=== PATIENT | male | born 1955 | race Caucasian/White ===

== ENCOUNTER 2016-10-28 13:19 | Emergency (ER) | payer MEDICAID ==
[2016-10-28] MEDS ORDERED: Sodium Chloride 0.9% 10 ML Syringe FLUSH PRN (14:01)
[2016-10-28] MEDS ORDERED: Sodium Chloride 0.9% 1,000 ML IV ONE (14:02)
[2016-10-28 14:57] LABS: CHLORIDE,CL 98 mmol/L (98-107); SODIUM,NA 136 mmol/L (136-145)
[2016-10-28] MEDS ORDERED: Piperacillin/Tazobactam 4.5 GM in Sodium Chloride 0.9% 100 ML IV ONE (15:01)
[2016-10-28] MEDS ORDERED: Acetaminophen 325 MG Tab PO ONE (15:18)
[2016-10-28] MEDS ORDERED: Aspirin 81 MG Tab.Chew PO ONE (15:34)
[2016-10-28 21:00] VITALS: BP 170/115
--- NOTE | 2016-10-31 08:09 | ER ---
Date of Service: 10/28/2016 SUBJECTIVE: Los presents to the emergency room via ambulance. The patient is currently undergoing treatment for prostate cancer. The patient's son currently resides with the patient at least part-time and states that the patient has been experiencing increased weakness and fatigue for sometime, but he stated that the patient was unable to get out of bed today to use the bathroom. Again the patient is currently undergoing treatment for prostate cancer. In reviewing his medical records, it appears as though he did have a prostatectomy in 2007, but was having elevations in his PSA. I do not have all of his medical records at this point, but it looks as though he underwent radiation and is currently undergoing once monthly chemotherapy according to his . I am not sure of what type of chemotherapeutic agent is being used for this. The patient is quite confused, so his history of present illness is obtained primarily from his family. The patient's son states that he has been having significant decrease in his appetite and his intake of food and fluids has been suboptimal. PAST MEDICAL HISTORY: 1. Stage IV prostate cancer status post prostatectomy. 2. Pulmonary nodules. 3. Tobacco abuse disorder. 4. History of alcoholism. 5. Hepatitis C. 6. Pancytopenia secondary to liver cirrhosis. 7. Stress incontinence. 8. Erectile dysfunction. 9. Chronic pain syndrome. 10.L5-S1 disk herniation with radiculopathy. 11.Anxiety. 12.Hyperlipidemia. 13. I previously stated I was not aware of what chemotherapy the patient was on, but in reviewing his medical records that just in fact it appears that he is on Lupron monthly. MEDICATIONS: 1. Lyrica 100 mg by mouth 2 times a day. 2. Trazodone 150 mg half tablet by mouth 3 times a day. 3. [place] 5/325 one tablet by mouth 4 times a day. 4. Lopressor 50 mg half a tablet by mouth 2 times a day. 5. Zoloft 50 mg 2 tablets by mouth once daily. 6. Alprazolam 0.5 mg 1 tablet by mouth 4 times a day. 7. Tums 500 mg 2 tablets by mouth 4 times a day. 8. Enteric-coated aspirin 325 mg once daily. 9. Multivitamin 1 tablet by mouth daily. 10.[place]-3 fatty acid 1 tablet by mouth 3 times a day. 11.Lupron 30 mg once daily. ALLERGIES: Gabapentin and pseudoephedrine. REVIEW OF SYSTEMS: Unobtainable. The patient is quite confused and unable to afford anyway any information on his signs or symptoms. PHYSICAL EXAMINATION: General: This is a 61-year-old male patient, who is in no acute distress. Vital signs: Blood pressure is 147/101, heart rate is 122, respiratory rate is 34, O2 saturation 93% on room air. Temp is 101.4, unable to relate what his pain level is. Skin: Warm, ashen, and dry. HEENT: Eyes, PERRLA. Extraocular movements are intact. Ears, TMs are clear. Mouth, oral mucosa is moist. No erythema or exudate noted in the hypopharynx. Neck: Supple. No masses. There is no lymphadenopathy. Lungs: Diminished in the bases. Heart: Regular rate and rhythm. Abdomen: Soft, nontender. There is no obvious masses noted. His abdomen is obese. Extremities: Without edema. No obvious cellulitis noted. Neurologic: The patient is awake and attempts to answer questions, but is unsuccessful most of the time. DIAGNOSTIC DATA: Portable chest x-ray was obtained. There was no evidence of any acute infiltrate. Hematology, WBC is 8.8, hemoglobin is 14.4, platelets are 86. Coags, PT is 12.5, INR is 1.1. Chemistry, sodium is 136, potassium is 3.4, chloride is 98, bicarb is 27, BUN is 34, creatinine is 1.7, GFR is 41, glucose is 115, lactic acid is 2.4, calcium is 8.8, corrected calcium is 9.2, total bilirubin is 1.7, AST is 170, ALT is 52, alkaline phosphatase is 70, CK is , CK-MB is 3.3, troponin is 0.324. C-reactive protein is 0.2. Total protein is 8.5. Urinalysis was obtained, specific gravity is 1.025. This is after a liter of saline. PH was 5.5. He did have a greater than 300 protein and negative glucose, did have trace of ketones, large occult blood, negative nitrites, small bilirubin and negative leukocyte esterase. He had 30 to 40 rbcs per high-power field. EMERGENCY ROOM COURSE: IV access was established. He was given a liter of normal saline IV. He was given Zosyn 4.5 g IV and started on vancomycin 1.5 g IV x1. He did remain hemodynamically stable during his stay in the emergency room. ASSESSMENT: 1. Sepsis of unknown etiology. 2. Profound dehydration. 3. Acute kidney injury. 4. Positive troponin secondary to [id number] myocardial infarction versus renal insufficiency. 5. Rhabdomyolysis. PLAN: The patient will be transferred to [facility] in [place]. I spoke with Dr. Ibanez, the hospitalist, who accepted the patient in transfer. The patient will be transported by [facility] ground ambulance to continue antibiotics and IV fluids. Family was present during his care and is aware of the plan. All questions were answered. MWK: 10/28/2016 17:43:50 MODL: 10/28/2016 18:32:37 /[id number]
== END 2016-10-28 16:15 | disposition short-term general hospital (02) ==
LOC: VM.ED 13:19
DX: A41.9 Sepsis, unspecified organism (principal); E86.0 Dehydration; N17.9 Acute kidney failure, unspecified; M62.82 Rhabdomyolysis; C61 Malignant neoplasm of prostate; F41.9 Anxiety disorder, unspecified; E78.5 Hyperlipidemia, unspecified; Z88.8 Allergy status to other drugs, medicaments and biological substances; Z79.82 Long term (current) use of aspirin; Z79.899 Other long term (current) drug therapy; Z90.79 Acquired absence of other genital organ(s)
CPT/HCPCS: 36415; 71010; 80053; 81001; 82550; 82553; 83605; 84484; 85025; 85610; 86140; 87040; 93005; 96361; 96365; 96367; 99285; A9270; J2543; J3370; J7030; J7050

== ENCOUNTER 2018-11-07 01:36 | Emergency (ER) | payer MEDICARE, MEDICAID ==
[2018-11-07 01:47] VITALS: BP 145/90; PULSE 85
[2018-11-07] MEDS ORDERED: Aspirin 81 MG Tab.Chew PO ONE (02:09)
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
[2018-11-07 02:55] LABS: CHLORIDE,CL 102 mmol/L (98-107); SODIUM,NA 139 mmol/L (136-145)
[2018-11-07 02:56] LABS: ANION GAP 14.9 mmol/L (10-20)
== END 2018-11-07 03:05 | disposition home or self-care (01) ==
LOC: VM.ED 01:36
DX: F41.9 Anxiety disorder, unspecified (principal); I10 Essential (primary) hypertension; F17.210 Nicotine dependence, cigarettes, uncomplicated; Z88.8 Allergy status to other drugs, medicaments and biological substances; Z79.899 Other long term (current) drug therapy
CPT/HCPCS: 36415; 80053; 83735; 83880; 84443; 84484; 85025; 85610; 93005; 99285; A9270

== ENCOUNTER 2019-01-28 16:25 | Emergency (ER) | payer MEDICARE, MEDICAID ==
[2019-01-28 16:48] VITALS: BP 123/77; PULSE 115
[2019-01-28] MEDS ORDERED: Acetaminophen/HYDROcodone 325-5 MG Tab PO ONE (17:12)
[2019-01-28] MEDS ORDERED: Lidocaine 1% 30 ML SDV INJECT ONE (17:42)
--- NOTE | 2019-01-28 17:56 | EDM.PDOC ---
ED HPI GENERAL MEDICAL PROBLEM - General Chief Complaint: Laceration Stated Complaint: FALL Time Seen by Provider: 01/28/19 16:50 Source of Information: Reports: Patient History Limitations: Reports: No Limitations - History of Present Illness INITIAL COMMENTS - FREE TEXT/NARRATIVE: PtAime presents to ER with complaints of head, facial, and L ankle pain post fall. He states that he was down at the [place] looking for a place to fish and slipped, striking his head on rocks. Denies any LOC. He was wearing glasses and states that he the were broken in the fall and caused a laceration to his forehead. Denies any c-spine pain. He states that he has only consumed 2 beers. He was able to ambulate but complains of pain to the L ankle. Denies any numbness/tingling in extremities. No troubles with speech. Onset: Today Onset Date: 01/28/19 Location: Reports: Head, Face Quality: Reports: Ache left ankle and headache Pain Score (Numeric/FACES): 8 - Related Data Allergies Allergy/AdvReac Type Severity Reaction Status Date / Time pseudoephedrine HCl AdvReac Cannot Verified 11/07/18 01:39 [From Tip] Remember Home Meds: Home Meds Apalutamide 240 mg PO DAILY 11/07/18 [History] Past Medical History HEENT History: Reports: Hard of Hearing, Impaired Vision Cardiovascular History: Reports: Hypertension Gastrointestinal History: Reports: Hepatitis Other Gastrointestinal History: liver disease Musculoskeletal History: Reports: Back Pain, Chronic Psychiatric History: Reports: Addiction, Anxiety Other Psychiatric History: ETOH abuse Oncologic (Cancer) History: Reports: Prostate ED ROS GENERAL - Review of Systems Review Of Systems: See Below Constitutional: Reports: No Symptoms HEENT: Reports: Eye Pain, Other (facial pain) Respiratory: Reports: No Symptoms Cardiovascular: Reports: No Symptoms Endocrine: Reports: No Symptoms GI/Abdominal: Reports: No Symptoms : Reports: No Symptoms Musculoskeletal: Reports: Foot Pain, Joint Pain (ankle pain) Skin: Reports: No Symptoms Neurological: Reports: No Symptoms Psychiatric: Reports: No Symptoms Hematologic/Lymphatic: Reports: No Symptoms Immunologic: Reports: No Symptoms ED EXAM, GENERAL - Physical Exam Exam: See Below Exam Limited By: No Limitations General Appearance: Alert, WD/WN, No Apparent Distress Eye Exam: Bilateral Eye: EOMI, PERRL, Other (subconjuctival hemorrhage. Pt. unable to fully open eye. Appears to be a small corneal abrasion to medial aspect of eye at approx. 3:00 position. No obvious globe injury noted. ) Nose: Other (3 cm laceration to bridge of nose) Throat/Mouth: Normal Inspection, Normal Lips, Normal Teeth, Normal Gums, Normal Oropharynx, Normal Voice, No Airway Compromise Head: Atraumatic, Normocephalic Neck: Normal Inspection, Supple, Non-Tender, Full Range of Motion Respiratory/Chest: No Respiratory Distress, Lungs Clear, Normal Breath Sounds, No Accessory Muscle Use, Chest Non-Tender Cardiovascular: Normal Peripheral Pulses, Regular Rate, Rhythm, No Edema, No Gallop, No JVD, No Murmur, No Rub GI/Abdominal: Normal Bowel Sounds, Soft, Non-Tender, No Organomegaly, No Distention, No Mass (Male) Exam: Deferred Rectal (Males) Exam: Deferred Back Exam: Normal Inspection, Full Range of Motion Extremities: Normal Inspection, Other (pain to lateral aspect of L ankle/foot) Neurological: Alert, Oriented, CN II-XII Intact, Normal Cognition, No Motor/ Sensory Deficits Psychiatric: Normal Affect, Normal Mood Skin Exam: Warm, Dry, Intact, Normal Color, No Rash Lymphatic: No Adenopathy ED GENERAL MEDICAL PROCEDURES - Laceration/Wound Repair Forehead Appearance: Subcutaneous Anesthetic Type: Local Local Anesthesia - Lidocaine (Xylocaine): 1% Plain Local Anesthetic Volume: 3cc Skin Prep: Chlorhexidine (Hibiciens), Saline Exploration/Debridement/Repair: Wound Explored, No Foreign Material Found Closed with: Sutures Suture Size: 5-0 Suture Type: Nylon Course - Vital Signs Last Recorded V/S: Last Vital Signs Temp 37.1 C 01/28/19 16:44 Pulse 115 H 01/28/19 16:44 Resp 16 01/28/19 16:44 BP 123/77 01/28/19 16:44 Pulse Ox 92 L 01/28/19 16:44 - Orders/Labs/Meds Meds: Medications Discontinued Medications Generic Name Dose Route Start Last Admin Trade Name Freq PRN Reason Stop Dose Admin Hydrocodone Bitart/Acetaminophen 1 tab 01/28/19 17:12 01/28/19 17:40 [place] 325-5 Mg PO 01/28/19 17:13 1 tab ONETIME ONE Administration Hydrocodone Bitart/Acetaminophen 1 tab 01/28/19 18:47 01/28/19 18:53 [place] 325-10 Mg PO 01/28/19 18:48 1 tab ONETIME ONE Administration Fluorescein Sodium 1 mg 01/28/19 19:34 Ful-Jessy EYEBOTH 01/28/19 19:35 ONETIME ONE Gentamicin Sulfate 1 packet 01/28/19 19:34 Take Home: Gentamicin 0.3% Ophth Soln, 1 Kervin EYERT 01/28/19 19:35 ONETIME ONE Lidocaine HCl 30 ml 01/28/19 17:42 01/28/19 17:49 Xylocaine-Mpf 1% INJECT 01/28/19 17:43 5 ml ONETIME ONE Administration Departure - Departure Time of Disposition: 19:43 Disposition: Home, Self-Care 01 Clinical Impression: Laceration, Corneal abrasion, Subconjunctival hemorrhage of right eye, Talus fracture, Fx metatarsal - Discharge Information Instructions: Orbital Floor Fracture Without Entrapment, Acetaminophen; Hydrocodone tablets or capsules, Ankle Fracture, [id number] Referrals: Berta Goldberg MD [Primary Care Provider] - Forms: ED Department Discharge Additional Instructions: Follow-up with Dr. Toure at [facility] on Monday. I will call you with a time. The # to call is [phone] if you do not hear from them. Follow-up with Dr. Ace from podiatry in 2 weeks at [facility]. I will call for appointments for your tomorrow and let you know. The # to call [phone] if you do not hear from them. Again, I will call with an appointment time tomorrow. I will also call tomorrow to get you set up to see ophthalmology. [place] 10-325mg 1 every 4-6 hours as needed for pain. Gentamycin eye drops 1 drop to R eye 5 times a day. Absolutely no weight bearing on the fractured ankle. Use crutches and wear CAM walker.
--- NOTE | 2019-01-28 17:58 | CT ---
[id number] CT/CT Facial Bones WO IV; [id number] CT/CT Head WO IV EXAM: NONCONTRAST HEAD CT, FACIAL BONE CT WITHOUT CONTRAST INDICATION: Fall with facial trauma. COMPARISON: July 27, 2014. DISCUSSION: There is mild generalized atrophy. Mild multifocal white matter hypoattenuation is nonspecific, but generally ascribed to chronic small vessel ischemia. No mass effect or midline shift. No acute hemorrhage or extra-axial fluid collection. No acute territorial infarct is identified. Soft tissue and preseptal right facial/periorbital soft tissue swelling. 20 x 13 mm fat-containing right medial orbital wall blowout fracture. There are mildly comminuted and angulated bilateral nasal bone fractures which appear to be at least in part chronic, correlate with clinical examination. Mild scattered paranasal sinus mucosal thickening. Degenerative changes in the incidentally imaged cervical spine along with mild C3-C4 spondylolisthesis. IMPRESSION: 1. No evidence of acute intracranial trauma. 2. Fat-containing medial right orbital wall blowout fracture. 3. Bilateral nasal bone fractures appear at least partly chronic, correlate with clinical exam to further evaluate for acute fractures. Hugh Casper MD 01/28/19 [id number] Thank you for allowing us to participate in the care of your patient.
--- NOTE | 2019-01-28 17:59 | CR ---
[id number] RAD/RAD Ankle Left 3V Min EXAM: LEFT ANKLE 3 VIEWS INDICATION: Fall with ankle injury. COMPARISON: None. DISCUSSION: Soft tissue swelling in the ankle and imaged distal leg. Acute nondisplaced fifth metatarsal base fracture only included on the lateral view. Small age-indeterminate avulsion fracture is involving the dorsal aspect of the talonavicular joint. Small plantar calcaneal spur. No dislocation or other osseous abnormality is identified. IMPRESSION: 1. Small avulsion fractures off the dorsal aspect of the talonavicular joint. 2. Acute nondisplaced fifth metatarsal base fracture only seen on the lateral view. Hugh Casper MD 01/28/19 [id number] Thank you for allowing us to participate in the care of your patient.
[2019-01-28] MEDS ORDERED: Acetaminophen/HYDROcodone 325-10 MG Tab PO ONE (18:47)
--- NOTE | 2019-01-28 18:49 | CR ---
[id number] RAD/RAD Foot Left 2V EXAM: LEFT FOOT 3 VIEWS INDICATION: Fifth metatarsal fracture evident on ankle study per COMPARISON: None. DISCUSSION: Acute nondisplaced transverse fracture of the fifth metatarsal base extending to the tarsometatarsal articulation. Small avulsion fractures involving the dorsal aspect of the talonavicular joint. Small plantar calcaneal spur. No dislocation or other osseous abnormality is identified. Mild midfoot osteoarthritis. IMPRESSION: 1. Acute nondisplaced fifth metatarsal base fracture. 2. Small avulsion fractures involving the dorsal aspect of the talonavicular joint. Hugh Casper MD 01/28/19 [id number] Thank you for allowing us to participate in the care of your patient.
[2019-01-28] MEDS ORDERED: Take Home: Gentamicin 0.3% Ophth Soln 5 ML, 1 Bottle Pack EYERT ONE (19:34)
[2019-01-28] MEDS ORDERED: Fluorescein 1 MG Ophth Strip EYEBOTH ONE (19:34)
[2019-01-28] MEDS ORDERED: Take Home: Acetaminophen/HYDROcodone 325-5 MG, 5 Tab Pack PO ONE (19:48)
== END 2019-01-28 20:10 | disposition home or self-care (01) ==
LOC: VM.ED 16:25
DX: S92.355A Nondisplaced fracture of fifth metatarsal bone, left foot, initial encounter for closed fracture (principal); S92.152A Displaced avulsion fracture (chip fracture) of left talus, initial encounter for closed fracture; S01.21XA Laceration without foreign body of nose, initial encounter; S05.02XA Injury of conjunctiva and corneal abrasion without foreign body, left eye, initial encounter; S05.01XA Injury of conjunctiva and corneal abrasion without foreign body, right eye, initial encounter; H11.31 Conjunctival hemorrhage, right eye; I10 Essential (primary) hypertension; Z79.899 Other long term (current) drug therapy; Z88.8 Allergy status to other drugs, medicaments and biological substances; W01.198A Fall on same level from slipping, tripping and stumbling with subsequent striking against other object, initial encounter; Y92.828 Other wilderness area as the place of occurrence of the external cause; Y93.89 Activity, other specified
CPT/HCPCS: 12013; 70450; 70486; 73610; 73620; 99284; A9270; J2001; 12011

== ENCOUNTER 2019-06-03 03:51 | Emergency (ER) | payer MEDICARE, MEDICAID ==
[2019-06-03] MEDS ORDERED: Sodium Chloride 0.9% 10 ML Syringe FLUSH PRN (03:57)
--- NOTE | 2019-06-03 04:08 | EDM.PDOC ---
ED HPI GENERAL MEDICAL PROBLEM - General Chief Complaint: Respiratory Problem Stated Complaint: Cough / Weak Time Seen by Provider: 06/03/19 03:51 Source of Information: Reports: Patient, EMS History Limitations: Reports: No Limitations - History of Present Illness INITIAL COMMENTS - FREE TEXT/NARRATIVE: Patient presents to the ER via ambulance with complaints of weakness, chills, body aches and dyspnea. Patient states the symptoms started about 2 days ago and have gotten worse. Patient states he has had a productive cough with yellow/ green sputum. Patient is a current smoker. Patient states he did drugs yesterday but would not specify what kind. Patient uses a LABA and ED but does not appear to have a diagnosis of COPD. Patient states he has arthralgias and myalgias and feels weak. Patient denies rash, chest pain, palpitations, edema, diarrhea, nausea or vomiting. Onset Date: 06/01/19 Duration: Getting Worse Location: Reports: Chest Severity: Moderate Improves with: Reports: None Worsens with: Reports: None - Related Data Allergies Allergy/AdvReac Type Severity Reaction Status Date / Time pseudoephedrine HCl AdvReac Cannot Verified 11/07/18 01:39 [From Tip] Remember Home Meds: Home Meds Apalutamide 240 mg PO DAILY 11/07/18 [History] Past Medical History HEENT History: Reports: Hard of Hearing, Impaired Vision Cardiovascular History: Reports: Hypertension Respiratory History: Reports: Other (See Below) Other Respiratory History: nodule right lung Gastrointestinal History: Reports: Hepatitis Other Gastrointestinal History: liver disease Musculoskeletal History: Reports: Back Pain, Chronic Psychiatric History: Reports: Addiction, Anxiety Other Psychiatric History: ETOH abuse Hematologic History: Reports: Anemia, Other (See Below) Other Hematologic History: thrombocytopenia Oncologic (Cancer) History: Reports: Prostate ED ROS GENERAL - Review of Systems Review Of Systems: See Below Constitutional: Reports: Fever, Chills, Malaise, Weakness, Fatigue. Denies: Night Sweats, Diaphoresis HEENT: Denies: Throat Pain, Vertigo Respiratory: Reports: Shortness of Breath, Cough, Sputum. Denies: Wheezing, Pleuritic Chest Pain Cardiovascular: Reports: No Symptoms, Dyspnea on Exertion. Denies: Chest Pain, Blood Pressure Problem, Edema, Palpitations, Syncope Endocrine: Reports: No Symptoms GI/Abdominal: Denies: Abdominal Pain, Constipation, Diarrhea, Nausea, Vomiting : Reports: No Symptoms Musculoskeletal: Reports: Joint Pain Skin: Reports: No Symptoms Neurological: Reports: No Symptoms Psychiatric: Reports: No Symptoms Hematologic/Lymphatic: Reports: No Symptoms Immunologic: Reports: No Symptoms ED EXAM, GENERAL - Physical Exam Exam: See Below Exam Limited By: No Limitations General Appearance: Alert, WD/WN, Mild Distress Eye Exam: Bilateral Eye: EOMI Ears: Normal External Exam Nose: Normal Inspection, Normal Mucosa, No Blood Throat/Mouth: Normal Inspection Head: Atraumatic, Normocephalic Neck: Normal Inspection, Supple, Non-Tender Respiratory/Chest: No Respiratory Distress, Lungs Clear, Normal Breath Sounds, Chest Non-Tender Cardiovascular: Normal Peripheral Pulses, Regular Rate, Rhythm, No Edema, No Murmur Peripheral Pulses: 2+: Radial (L), Radial (R) GI/Abdominal: Normal Bowel Sounds, Soft, Non-Tender, No Organomegaly, No Distention, No Mass (Male) Exam: Deferred Rectal (Males) Exam: Deferred Back Exam: Normal Inspection, Full Range of Motion Extremities: Normal Inspection, Normal Range of Motion, No Pedal Edema, Normal Capillary Refill Neurological: Alert, Oriented, CN II-XII Intact, Normal Cognition, Normal Gait, Normal Reflexes, No Motor/Sensory Deficits Psychiatric: Normal Affect, Normal Mood Skin Exam: Warm, Dry, Intact, Normal Color, No Rash Lymphatic: No Adenopathy EKG INTERPRETATION EKG Date: 06/03/19 Rhythm: NSR Course - Vital Signs Last Recorded V/S: Last Vital Signs Temp 38.2 C H 06/03/19 05:55 Pulse Resp BP Pulse Ox - Orders/Labs/Meds Orders: Active Orders 24 hr Category Date Time Status EKG Documentation Completion [RC] STAT Care 06/03/19 03:57 Active RT Aerosol Therapy [RC] ASDIRECTED Care 06/03/19 04:08 Active Chest 1V Frontal [CR] Stat Exams 06/03/19 03:57 Taken CULTURE BLOOD [BC] Stat Lab 06/03/19 04:50 Received CULTURE BLOOD [BC] Stat Lab 06/03/19 05:00 Results Sodium Chloride 0.9% [Saline Flush] Med 06/03/19 03:57 Active 10 ml FLUSH ASDIRECTED PRN Blood Culture x2 Reflex Set [OM.PC] Stat Oth 06/03/19 03:58 Ordered Peripheral IV Insertion Adult [OM.PC] Routine Oth 06/03/19 03:58 Ordered Medication Orders Sodium Chloride (Saline Flush) 10 ml FLUSH ASDIRECTED PRN PRN Reason: Keep Vein Open Labs: Laboratory Tests 06/03/19 06/03/19 06/03/19 Range/Units 04:50 04:50 04:50 WBC 7.0 (4.0-10.0) x10^3/uL RBC 4.21 L (4.5-6.0) x10^6/uL Hgb 13.2 L (14.0-18.0) g/dL Hct 39.9 L (40.0-52.0) % MCV 94.8 H (78.0-93.0) fL MCH 31.4 (26.0-32.0) pg MCHC 33.1 (32.0-36.0) g/dL RDW Coeff of Zak 13.7 (10.0-15.0) % Plt Count 86 L (130-400) x10^3/uL Neut % (Auto) 65.6 (50.0-80.0) % Lymph % (Auto) 22.0 L (25.0-50.0) % [place] % (Auto) 12.2 H (2.0-11.0) % Eos % (Auto) 0.1 (0.0-4.0) % Baso % (Auto) 0.1 L (0.2-1.2) % PT 10.9 (10.0-12.8) SEC INR 1.0 L (2.0-3.5) Sodium 138 (136-145) mmol/L Potassium 4.2 (3.5-5.1) mmol/L Chloride 101 (98-107) mmol/L Carbon Dioxide 26 (21-32) mmol/L Anion Gap 15.2 (10-20) mmol/L BUN 25 H (7-18) mg/dL Creatinine 1.1 (0.70-1.30) mg/dL Est Cr Clr Drug Dosing TNP Estimated GFR (MDRD) > 60 Glucose 143 H (74-106) mg/dL Lactic Acid (0.4-2.0) mmol/L Calcium 9.0 (8.5-10.1) mg/dL Corrected Calcium 9.24 (8.5-10.1) mg/dL Magnesium 2.0 (1.8-2.4) mg/dL Total Bilirubin 0.6 (0.2-1.0) mg/dL AST 37 (15-37) U/L ALT 36 (16-63) U/L Alkaline Phosphatase 79 (46-116) U/L Troponin I < 0.017 (<=0.056) ng/mL C-Reactive Protein 2.8 H (<=0.9) mg/dL Total Protein 8.0 (6.4-8.2) g/dL Albumin 3.7 (3.4-5.0) g/dL Globulin 4.3 Albumin/Globulin Ratio 0.86 / Range/Units 04:50 WBC (4.0-10.0) x10^3/uL RBC (4.5-6.0) x10^6/uL Hgb (14.0-18.0) g/dL Hct (40.0-52.0) % MCV (78.0-93.0) fL MCH (26.0-32.0) pg MCHC (32.0-36.0) g/dL RDW Coeff of Zak (10.0-15.0) % Plt Count (130-400) x10^3/uL Neut % (Auto) (50.0-80.0) % Lymph % (Auto) (25.0-50.0) % [place] % (Auto) (2.0-11.0) % Eos % (Auto) (0.0-4.0) % Baso % (Auto) (0.2-1.2) % PT (10.0-12.8) SEC INR (2.0-3.5) Sodium (136-145) mmol/L Potassium (3.5-5.1) mmol/L Chloride (98-107) mmol/L Carbon Dioxide (21-32) mmol/L Anion Gap (10-20) mmol/L BUN (7-18) mg/dL Creatinine (0.70-1.30) mg/dL Est Cr Clr Drug Dosing Estimated GFR (MDRD) Glucose (74-106) mg/dL Lactic Acid 1.6 (0.4-2.0) mmol/L Calcium (8.5-10.1) mg/dL Corrected Calcium (8.5-10.1) mg/dL Magnesium (1.8-2.4) mg/dL Total Bilirubin (0.2-1.0) mg/dL AST (15-37) U/L ALT (16-63) U/L Alkaline Phosphatase (46-116) U/L Troponin I (<=0.056) ng/mL C-Reactive Protein (<=0.9) mg/dL Total Protein (6.4-8.2) g/dL Albumin (3.4-5.0) g/dL Globulin Albumin/Globulin Ratio Meds: Medications Generic Name Dose Route Start Last Admin Trade Name Freq PRN Reason Stop Dose Admin Sodium Chloride 10 ml 06/03/19 03:57 Saline Flush FLUSH ASDIRECTED PRN Keep Vein Open Discontinued Medications Generic Name Dose Route Start Last Admin Trade Name Freq PRN Reason Stop Dose Admin Acetaminophen 1,000 mg 06/03/19 05:37 06/03/19 05:55 Tylenol Extra Strength PO 06/03/19 05:38 1,000 mg ONETIME ONE Administration Albuterol/Ipratropium 3 ml 06/03/19 04:08 06/03/19 04:19 Duoneb 3.0-0.5 Mg/3 Ml NEB 06/03/19 04:09 3 ml ONETIME ONE Administration Ceftriaxone Sodium 2 gm 06/03/19 04:31 06/03/19 04:54 Rocephin IVPUSH 06/03/19 04:32 2 gm STAT ONE Administration Methylprednisolone Sodium Succinate 125 mg 06/03/19 04:08 06/03/19 05:01 Solu-Medrol IV 06/03/19 04:09 125 mg ONETIME ONE Administration Oseltamivir Phosphate 75 mg 06/03/19 05:38 06/03/19 05:56 Tamiflu PO 06/03/19 05:39 75 mg ONETIME ONE Administration - Re-Assessments/Exams Free Text/Narrative Re-Assessment/Exam: Patient was able to ambulate in hallway without dyspnea, O2 after sitting 95 % 06/03/19 06:08 Departure - Departure Time of Disposition: 06:08 Disposition: Home, Self-Care 01 Condition: Good Clinical Impression: Influenza A, COPD exacerbation - Discharge Information Instructions: Chronic Obstructive Pulmonary Disease Exacerbation, Influenza, Adult, Doxycycline tablets or capsules, Oseltamivir capsules, Prednisone tablets , Probiotics Referrals: Berta Goldberg MD [Primary Care Provider] - Forms: ED Department Discharge Additional Instructions: Tamiflu 75mg 1 twice daily for 5 days Doxycycline 100mg 1 twice daily for 10 days Prednisone 20mg 3 tabs every day for 5 days Use albuterol inhaler as needed for cough Drink plenty of fluids Recheck in clinic in 10-14 days Sepsis Event Note - Focused Exam Vital Signs: Vital Signs Temp 06/03/19 05:55 38.2 C H Date Exam was Performed: 06/03/19 Time Exam was Performed: 05:58 - My Orders Last 24 Hours: My Active Orders 06/03/19 03:57 EKG Documentation Completion [RC] STAT Chest 1V Frontal [CR] Stat Sodium Chloride 0.9% [Saline Flush] 10 ml FLUSH ASDIRECTED PRN 06/03/19 03:58 Blood Culture x2 Reflex Set [OM.PC] Stat Peripheral IV Insertion Adult [OM.PC] Routine 06/03/19 04:08 RT Aerosol Therapy [RC] ASDIRECTED 06/03/19 04:50 CULTURE BLOOD [BC] Stat 06/03/19 05:00 CULTURE BLOOD [BC] Stat - Assessment/Plan Last 24 Hours: My Active Orders 06/03/19 03:57 EKG Documentation Completion [RC] STAT Chest 1V Frontal [CR] Stat Sodium Chloride 0.9% [Saline Flush] 10 ml FLUSH ASDIRECTED PRN 06/03/19 03:58 Blood Culture x2 Reflex Set [OM.PC] Stat Peripheral IV Insertion Adult [OM.PC] Routine 06/03/19 04:08 RT Aerosol Therapy [RC] ASDIRECTED 06/03/19 04:50 CULTURE BLOOD [BC] Stat 06/03/19 05:00 CULTURE BLOOD [BC] Stat Plan: Tamiflu 75mg 1 twice daily for 5 days Doxycycline 100mg 1 twice daily for 10 days Prednisone 20mg 3 tabs every day for 5 days Use albuterol inhaler as needed for cough Drink plenty of fluids Recheck in clinic in 10-14 days
[2019-06-03] MEDS: Albuterol/Ipratropium 3.0-0.5 MG/3 ML Neb Soln NEB ONE (04:19)
[2019-06-03] MEDS: cefTRIAXone 2 GM Vial IVPUSH ONE (04:54)
[2019-06-03] MEDS: methylPREDNISolone Sodium Succinate 125 MG/2 ML SDV IV ONE (05:01)
[2019-06-03 05:37] LABS: CHLORIDE,CL 101 mmol/L (98-107); SODIUM,NA 138 mmol/L (136-145)
[2019-06-03 05:38] LABS: ANION GAP 15.2 mmol/L (10-20)
[2019-06-03] MEDS: Acetaminophen 500 MG Tab PO ONE (05:55)
[2019-06-03] MEDS: Oseltamivir 75 MG Cap PO ONE (05:56)
[2019-06-03 06:23] VITALS: BP 132/78; PULSE 98
--- NOTE | 2019-06-03 07:38 | CR ---
[id number] RAD/RAD Chest PA or AP 1V EXAM: SINGLE VIEW CHEST. INDICATION: COUGH CHEST CONGESTION COMPARISON: CORRELATION IS MADE WITH THE EXAM OF OCTOBER 28, 2016 FINDINGS: The lungs are clear. The cardiomediastinal contour is stable IMPRESSION: NO PNEUMONIA OR EDEMA Braeden Gomez MD 06/03/19 0737 Thank you for allowing us to participate in the care of your patient.
== END 2019-06-03 06:15 | disposition home or self-care (01) ==
LOC: VM.ED 03:51
DX: J44.1 Chronic obstructive pulmonary disease with (acute) exacerbation (principal); J10.1 Influenza due to other identified influenza virus with other respiratory manifestations; I10 Essential (primary) hypertension; F17.210 Nicotine dependence, cigarettes, uncomplicated; Z88.8 Allergy status to other drugs, medicaments and biological substances; Z85.46 Personal history of malignant neoplasm of prostate
CPT/HCPCS: 36415; 71045; 80053; 83605; 83735; 84484; 85025; 85610; 86140; 87040; 87804; 87804-59; 93005; 93010; 96374; 96375; 99284-GF; 99285-25; A9270-GY; J0696; J2930; J7620-GY

== ENCOUNTER 2019-07-27 13:54 | Emergency (ER) | payer MEDICARE, MEDICAID ==
[2019-07-27] MEDS ORDERED: Sodium Chloride 0.9% 10 ML Syringe FLUSH PRN (14:13)
[2019-07-27] MEDS ORDERED: fentaNYL 100 MCG/2 ML SDV IVPUSH ONE (14:15)
[2019-07-27] MEDS ORDERED: Ondansetron 4 MG/2 ML SDV IV ONE (14:15)
[2019-07-27] MEDS ORDERED: Iopamidol 612 MG/ML 100 ML Bottle IVPUSH ONE (14:51)
[2019-07-27 15:12] LABS: CHLORIDE,CL 97 mmol/L (98-107); SODIUM,NA 136 mmol/L (136-145)
[2019-07-27 15:14] LABS: ANION GAP 18.2 mmol/L (10-20)
--- NOTE | 2019-07-27 15:55 | CT ---
[id number] CT/CT Abdomen Pelvis W IV EXAM: CT Abdomen Pelvis W IV CLINICAL DATA: CHRONIC LIVER DISEASE HEPATOMA PORTAL HYPERTENSION ABDOMINAL PAIN RIGHT UPPER QUADRANT PAIN COMPARISON: CORRELATION IS MADE WITH THE MRI OF JUNE 16, 2020 WHEN THE POSSIBILITY OF A LIVER MASS WAS FIRST DESCRIBED SINCE THAT TIME THE PATIENT APPARENTLY HAS UNDERGONE A LIVER BIOPSY AND SINCE HAS OBVIOUSLY HAS UNDERGONE WHAT APPEARS TO BE CHEMOEMBOLIZATION WITH NECROSIS AND LIPIODOL IN THE RIGHT LOBE OF THE LIVER. HEPATIC NECROSIS BY ITSELF COULD EXPLAIN ABDOMINAL PAIN IN THE MEANTIME, THE GALLBLADDER IS SEEN TO BE DISTENDED CURRENTLY THERE IS SUBTLE CT EVIDENCE OF CHOLECYSTOLITHIASIS THE GALLBLADDER WALL IS NORMAL THE ULTRASOUND OF NOVEMBER 26, 2018 DID DESCRIBE EVIDENCE OF CHOLECYSTOLITHIASIS FINDINGS: There is moderate small bowel distention seen. The mesenteric venous system is patent There is specifically no thrombosis of the superior mesenteric vein or portal vein. Cirrhosis and splenomegaly are seen There is no ascites There is no bowel wall thickening, free fluid, or pneumatosis intestinalis The gallbladder is moderately distended The gallbladder wall is normal There again does appear to be cholecystolithiasis Collateral venous vessels are seen related to portal hypertension There are moderate atheromatous calcifications The superior mesenteric artery and celiac axis are patent and opacified There is no solid renal mass or hydronephrosis of either kidney An occasional renal cyst is seen The right adrenal appears decreased in size and associated with calcification The left adrenal is normal The abdominal aorta demonstrates slight ectasia The pelvis shows no mass, adenopathy, abscess, or diverticulitis The prostate has been removed. The appendix is thought to be normal There are degenerative changes of the lumbar spine. IMPRESSION: SMALL BOWEL DISTENTION DISTENTION OF GALLBLADDER A SMALL BOWEL WATER-SOLUBLE CONTRAST STUDY AND SURGICAL OPINION WOULD BE HELPFUL TO EVALUATE FOR POSSIBLE PARTIAL SMALL BOWEL OBSTRUCTION A NUCLEAR IMAGING STUDY WOULD BE HELPFUL TO CHECK FOR CYSTIC DUCT PATENCY REPORT CALLED Braeden Gomez MD 07/27/19 4838 Thank you for allowing us to participate in the care of your patient.
[2019-07-27 16:12] VITALS: BP 106/67; PULSE 90
[2019-07-27] MEDS ORDERED: HYDROmorphone 1 MG/ML Syringe IVPUSH ONE ×2 (16:15→17:12)
[2019-07-27] MEDS ORDERED: Lactated Ringers 1,000 ML IV SCH (17:00)
--- NOTE | 2019-07-27 17:05 | EDM.PDOC ---
ED HPI GENERAL MEDICAL PROBLEM - General Chief Complaint: Abdominal Pain Stated Complaint: abdominal pain Time Seen by Provider: 07/27/19 14:10 Source of Information: Reports: Patient History Limitations: Reports: No Limitations - History of Present Illness INITIAL COMMENTS - FREE TEXT/NARRATIVE: Patient comes emergency department today from home by ambulance with concerns of right upper quadrant pain. This patient on had a chemoembolization procedure on his liver. He has a history of prostate cancer as well as concerns for liver cancer. Since he has been sent home on he has had increasing right upper quadrant abdominal pain. He was taken his Tylenol 3 without relief of pain. He has been able to eat and drink without any complaints. No nausea no vomiting. No diarrhea. No chest pain no shortness of breath or difficulty breathing. No fever no chills. No cough congestion shortness of breath. He has had decreased bowel movements. And he does feel like he is bloated and distended throughout the abdomen. Right Abdomen Pain Score (Numeric/FACES): 10 - Related Data Allergies Allergy/AdvReac Type Severity Reaction Status Date / Time pseudoephedrine HCl AdvReac Cannot Verified 07/27/19 14:15 [From Tip] Remember Home Meds: Home Meds Apalutamide 240 mg PO DAILY 11/07/18 [History] Acetaminophen [Pain Reliever] 500 mg PO Q4H PRN 07/27/19 [History] Acetaminophen with Codeine [Tylenol with Codeine #3 Tablet] 1 each PO Q6H PRN [History] Albuterol [Proventil HFA] 2 puff INH Q4H PRN 07/27/19 [History] Amoxicillin/Clavulanate K [Augmentin 875-125 MG] 1 tab PO BID 07/27/19 [History] Calcium Carbonate 2 tab PO QID 07/27/19 [History] Gabapentin [Neurontin] 3 tab PO TID 07/27/19 [History] Meloxicam 15 mg PO DAILY 07/27/19 [History] Metoprolol Succinate [Toprol XL] 25 mg PO DAILY 07/27/19 [History] Mirtazapine 1 tab PO BID 07/27/19 [History] Multivitamin [Multivitamins] 1 each PO DAILY 07/27/19 [History] Umeclidinium Brm/Vilanterol Tr [Anoro Ellipta 62.5-25 MCG] 1 each IH DAILY 07/26 [History] tiZANidine [Zanaflex] 4 mg PO TID PRN 07/27/19 [History] Past Medical History HEENT History: Reports: Hard of Hearing, Impaired Vision Cardiovascular History: Reports: Hypertension Respiratory History: Reports: Other (See Below) Other Respiratory History: nodule right lung Gastrointestinal History: Reports: Hepatitis Other Gastrointestinal History: liver disease Musculoskeletal History: Reports: Back Pain, Chronic Psychiatric History: Reports: Addiction, Anxiety Other Psychiatric History: ETOH abuse Hematologic History: Reports: Anemia, Other (See Below) Other Hematologic History: thrombocytopenia Oncologic (Cancer) History: Reports: Prostate Social & Family History - Tobacco Use Smoking Status *Q: Current Every Day Smoker Years of Tobacco use: 50 Packs/Tins Daily: 0.5 ED ROS GENERAL - Review of Systems Review Of Systems: Comprehensive ROS is negative, except as noted in HPI. ED EXAM, GI/ABD - Physical Exam Exam: See Below Exam Limited By: Altered Mental Status General Appearance: Alert, WD/WN, Moderate Distress Ears: Normal External Exam Nose: Normal Inspection Throat/Mouth: Normal Inspection Head: Atraumatic, Normocephalic Neck: Normal Inspection, Supple Respiratory/Chest: No Respiratory Distress, Lungs Clear, Normal Breath Sounds, No Accessory Muscle Use Cardiovascular: Normal Peripheral Pulses, Regular Rate, Rhythm GI/Abdominal Exam: Normal Bowel Sounds, Soft, Guarding (RUQ), Rebound (RUQ), Tender (RUQ with a positive murphys sign. ). No: Distended, Rigid (Male) Exam: Deferred Rectal (Males) Exam: Deferred Back Exam: Normal Inspection, Full Range of Motion Extremities: Normal Inspection, Normal Range of Motion, No Pedal Edema Neurological: Alert, Oriented, Normal Cognition, No Motor/Sensory Deficits Psychiatric: Normal Affect, Normal Mood Skin Exam: Warm, Dry, Intact, Normal Color, No Rash Course - Vital Signs Last Recorded V/S: Last Vital Signs Temp 37.2 C 07/27/19 16:11 Pulse 90 07/27/19 16:11 Resp 20 07/27/19 16:11 BP 106/67 07/27/19 16:11 Pulse Ox 94 L 07/27/19 16:11 - Orders/Labs/Meds Orders: Active Orders 24 hr Category Date Time Status LIPASE [CHEM] Stat Lab 07/27/19 14:15 Received Sodium Chloride 0.9% [Saline Flush] Med 07/27/19 14:13 Active 10 ml FLUSH ASDIRECTED PRN Peripheral IV Insertion Adult [OM.PC] Stat Oth 07/27/19 14:14 Ordered Medication Orders Sodium Chloride (Saline Flush) 10 ml FLUSH ASDIRECTED PRN PRN Reason: Keep Vein Open Last Admin: 07/27/19 16:43 Dose: 10 ml Labs: Laboratory Tests 07/27/19 07/27/19 07/27/19 Range/Units 14:15 14:15 14:15 WBC 10.0 (4.0-10.0) x10^3/uL RBC 3.83 L (4.5-6.0) x10^6/uL Hgb 11.9 L (14.0-18.0) g/dL Hct 35.4 L (40.0-52.0) % MCV 92.4 (78.0-93.0) fL MCH 31.1 (26.0-32.0) pg MCHC 33.6 (32.0-36.0) g/dL RDW Coeff of Zak 13.8 (10.0-15.0) % Plt Count 130 (130-400) x10^3/uL Neut % (Auto) 81.8 H (50.0-80.0) % Lymph % (Auto) 5.8 L (25.0-50.0) % [place] % (Auto) 12.1 H (2.0-11.0) % Eos % (Auto) 0.1 (0.0-4.0) % Baso % (Auto) 0.2 (0.2-1.2) % PT (10.0-12.8) SEC INR (2.0-3.5) Sodium 136 (136-145) mmol/L Potassium 4.2 (3.5-5.1) mmol/L Chloride 97 L (98-107) mmol/L Carbon Dioxide 25 (21-32) mmol/L Anion Gap 18.2 (10-20) mmol/L BUN 21 H (7-18) mg/dL Creatinine 1.1 (0.70-1.30) mg/dL Est Cr Clr Drug Dosing TNP Estimated GFR (MDRD) > 60 Glucose 131 H (74-106) mg/dL Lactic Acid 1.7 (0.4-2.0) mmol/L Calcium 8.7 (8.5-10.1) mg/dL Corrected Calcium 9.34 (8.5-10.1) mg/dL Total Bilirubin 1.2 H (0.2-1.0) mg/dL AST 158 H (15-37) U/L ALT 260 H (16-63) U/L Alkaline Phosphatase 135 H (46-116) U/L C-Reactive Protein 26.2 H (<=0.9) mg/dL Total Protein 7.8 (6.4-8.2) g/dL Albumin 3.2 L (3.4-5.0) g/dL Globulin 4.6 Albumin/Globulin Ratio 0.70 04// Range/Units 14:15 WBC (4.0-10.0) x10^3/uL RBC (4.5-6.0) x10^6/uL Hgb (14.0-18.0) g/dL Hct (40.0-52.0) % MCV (78.0-93.0) fL MCH (26.0-32.0) pg MCHC (32.0-36.0) g/dL RDW Coeff of Zak (10.0-15.0) % Plt Count (130-400) x10^3/uL Neut % (Auto) (50.0-80.0) % Lymph % (Auto) (25.0-50.0) % [place] % (Auto) (2.0-11.0) % Eos % (Auto) (0.0-4.0) % Baso % (Auto) (0.2-1.2) % PT 12.6 (10.0-12.8) SEC INR 1.1 L (2.0-3.5) Sodium (136-145) mmol/L Potassium (3.5-5.1) mmol/L Chloride (98-107) mmol/L Carbon Dioxide (21-32) mmol/L Anion Gap (10-20) mmol/L BUN (7-18) mg/dL Creatinine (0.70-1.30) mg/dL Est Cr Clr Drug Dosing Estimated GFR (MDRD) Glucose (74-106) mg/dL Lactic Acid (0.4-2.0) mmol/L Calcium (8.5-10.1) mg/dL Corrected Calcium (8.5-10.1) mg/dL Total Bilirubin (0.2-1.0) mg/dL AST (15-37) U/L ALT (16-63) U/L Alkaline Phosphatase (46-116) U/L C-Reactive Protein (<=0.9) mg/dL Total Protein (6.4-8.2) g/dL Albumin (3.4-5.0) g/dL Globulin Albumin/Globulin Ratio Meds: Medications Generic Name Dose Route Start Last Admin Trade Name Freq PRN Reason Stop Dose Admin Sodium Chloride 10 ml 07/27/19 14:13 07/27/19 16:43 Saline Flush FLUSH 10 ml ASDIRECTED PRN Administration Keep Vein Open Discontinued Medications Generic Name Dose Route Start Last Admin Trade Name Freq PRN Reason Stop Dose Admin Fentanyl 100 mcg 07/27/19 14:15 07/27/19 14:21 Sublimaze IVPUSH 07/27/19 14:16 100 mcg ONETIME ONE Administration Hydromorphone HCl 0.5 mg 07/27/19 16:15 07/27/19 16:21 Dilaudid IVPUSH 07/27/19 16:16 0.5 mg ONETIME ONE Administration Iopamidol 100 ml 07/27/19 14:51 07/27/19 14:56 Isovue-300 (61%) IVPUSH 07/27/19 14:52 100 ml ONETIME ONE Administration Ondansetron HCl 4 mg 07/27/19 14:15 07/27/19 14:23 Zofran IV 07/27/19 14:16 4 mg ONETIME ONE Administration - Radiology Interpretation Free Text/Narrative:: Small bowel distention question small bowel obstruction. Cholecystolithiasis subtle evidence. Distention of the gallbladder. - Re-Assessments/Exams Free Text/Narrative Re-Assessment/Exam: 07/27/19 17:06 IV NS lock Labs drawn. Zofran Fentanyl for nausea prophy and abd pain. Continue with the abd pain in the RUQ more consistent with a positive [place] sign than his previous abd exam. CT abd pelvis with concerns of a distended gallbladder and also an ileus of the Small bowel. I called and spoke with Dr. Schaeffer at [facility] in [place]. HPI ER COURSE findings and concerns were relayed to him especially my concern of the elevated liver enzymes and the elevated T-Bili and CRP of 26. He accepted the patient in transfer at this time for observation and further testing in [place]. The patients plan of care and concerns were relayed to the patient. He was comfortable with this plan and his questions answered. 07/27/19 17:07 Departure - Departure Time of Disposition: 16:56 Disposition: DC/Tfer to [facility] 02 Clinical Impression: RUQ pain, Ileus, Total bilirubin, elevated, Elevated liver enzymes - Discharge Information Referrals: PCP,None [Primary Care Provider] - Forms: ED Department Discharge, Interfacility Transfer EMTALA Sepsis Event Note - Evaluation Sepsis Screening Result: No Definite Risk - Focused Exam Vital Signs: Vital Signs Temp Pulse Resp BP Pulse Ox 07/27/19 16:11 37.2 C 90 20 106/67 94 L 07/27/19 14:00 37.1 C 93 22 H 108/62 96 Date Exam was Performed: 07/27/19 Time Exam was Performed: 16:56 - My Orders Last 24 Hours: My Active Orders 07/27/19 14:13 Sodium Chloride 0.9% [Saline Flush] 10 ml FLUSH ASDIRECTED PRN 07/27/19 14:14 Peripheral IV Insertion Adult [OM.PC] Stat 07/27/19 14:15 LIPASE [CHEM] Stat - Assessment/Plan Last 24 Hours: My Active Orders 07/27/19 14:13 Sodium Chloride 0.9% [Saline Flush] 10 ml FLUSH ASDIRECTED PRN 07/27/19 14:14 Peripheral IV Insertion Adult [OM.PC] Stat 07/27/19 14:15 LIPASE [CHEM] Stat Assessment:: RUQ pain, ? cholecystitis Elevated T Johann and AST ALT ? if obstruction of gallbladder. Recent chemo-embolization of the liver. SBO vs ileus Plan: Transfer to [facility] for further care and management and evaluation.
== END 2019-07-27 17:30 | disposition short-term general hospital (02) ==
LOC: VM.ED 13:54
DX: K56.7 Ileus, unspecified (principal); R17 Unspecified jaundice; R74.8 Abnormal levels of other serum enzymes; I10 Essential (primary) hypertension; F41.9 Anxiety disorder, unspecified; F17.210 Nicotine dependence, cigarettes, uncomplicated; Z88.8 Allergy status to other drugs, medicaments and biological substances
CPT/HCPCS: 36415; 74177; 80053; 83605; 83690; 85025; 85610; 86140; 96374; 96375; 96376; 99284-GF; 99285-25; J1170; J2405; J3010; J7120; Q9967

== ENCOUNTER 2021-02-25 20:50 | Emergency (ER) | payer MEDICARE, MEDICAID ==
[2021-02-25 21:15] VITALS: BP 139/78; PULSE 96
[2021-02-25 21:44] LABS: CHLORIDE,CL 105 mmol/L (98-107); SODIUM,NA 139 mmol/L (136-145)
[2021-02-25 21:46] LABS: ANION GAP 15.2 mmol/L (5-15)
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
== END 2021-02-25 22:15 ==
LOC: VM.ED 20:50
DX: S61.431A Puncture wound without foreign body of right hand, initial encounter (principal); Z88.8 Allergy status to other drugs, medicaments and biological substances; Y04.2XXA Assault by strike against or bumped into by another person, initial encounter
CPT/HCPCS: 36415; 80053; 80307; 85025; 99283